=== PATIENT | male | born 2000 | race Caucasian/White ===

== ENCOUNTER 2023-07-19 06:38 | Emergency (ER) | payer OTHER, SELFPAY ==
[2023-07-19 06:48] VITALS: BP 141/93; PULSE 68; RESP 18; TEMP 36.8; O2SAT 97; BMI 27.0
--- NOTE | 2023-07-19 06:59 | ED_ITS ---
HPI - Wound/Laceration General: Chief Complaint: Wound/Laceration Stated Complaint: lac to fingers on R hand Time Seen by Provider: 07/19/23 06:50 Source: patient Mode of arrival: ambulatory History of Present Illness: 23-year-old male presents emergency room with lacerations to his right fourth and fifth finger on the palmar surface. He said this happened a few hours ago he was holding onto the edge of a pickup truck slipped on the side step and when he tried to catch himself cut his hand on the metal on the truck. No other injuries. His last tetanus shot was 7 or more years ago. Physical Exam Narrative: EXAM NARRATIVE: Full-thickness laceration on the palmar surface of the distal aspects of the fourth and fifth fingers no active bleeding. Patient is able to flex and extend without difficulty. Procedures Laceration Laceration 1: Site: hand Side (If applicable): right Size (cm): 2 Description: irregular Depth: simple, single layer Pre-repair: irrigated extensively Skin layer closed with: nylon Size (cm): 5-0 Technique: running Laceration 2: Site: hand Side (If applicable): right (Right fifth finger) Size (cm): 3 Description: irregular Depth: simple, single layer Pre-repair: wound explored and irrigated extensively Skin layer closed with: nylon Size (cm): 5-0 Technique: simple, interrupted and running (1 close the combination of interrupted sutures to approximate wound and position edges properly. 2 interrupted sutures remaining running) Nerve Block Nerve Block 1: Local Anesthetic: lidocaine 1% Amount of anesthesia used (mL): 4 Nerve Blocks: digital Procedure Successful: Yes Patient Tolerated Procedure: well Complications: none Additional Comments: Right fourth finger Nerve Block 2: Local Anesthetic: lidocaine 1% Amount of anesthesia used (mL): 4 Nerve Blocks: digital Procedure Successful: Yes Patient Tolerated Procedure: well Additional Comments: Right fifth finger Course Vital Signs: Vital signs: Vital Signs Temperature 98.2 F 07/19/23 06:48 Pulse Rate 68 07/19/23 06:48 Respiratory Rate 18 07/19/23 06:48 Blood Pressure 141/93 07/19/23 06:48 Pulse Oximetry 97 07/19/23 06:48 Oxygen Delivery Me thod Room Air 07/19/23 06:48 MDM - Wound/Laceration Medical Decision Making Patient is a vasovagal episode while suturing was being done he was placed in Trendelenburg and recovered well. Running sutures applied to minimize knots and discomfort for patient to allow for swelling. Elevate as needed Keflex 503 times a day for 5 days since it was several hours after the original injury that he came to the emergency room. Tetanus updated sutures out in 7 to 10 days. Apply topical antibiotic ointment to wounds as well. Patient able to flex and extend fingers prior to digital nerve block and after digital nerve block was applied still has full function. No involvement of tendons. Differential Diagnosis Likely laceration No radiology studies performed this visit Discharge Plan Discharge Patient Disposition: Home Clinical Impression: Finger laceration Condition: Stable Prescriptions: New cephalexin 500 mg capsule 500 mg PO TID 5 Days Qty: 15 0RF mupirocin 2 % ointment 1 applic topical BID Qty: 22 0RF Discharge Orders: Discharge ED (Routine); Ordered 07/19/23 Ordered By: Shawn Isaac Referrals: Magallon,KATIA MiN [Primary Care Provider] - Discharge Diet: Usual diet Discharge Activity: Resume usual activity Patient Instructions: Laceration (ED), Opioid Safety, Pain Management Activity Restrictions/Additional Instructions: Thank you for choosing [facility] for your healthcare needs today. It is very important that you follow up as instructed or that you return to the Emergency Department should you have concerns or if your condition changes or worsens in any way. You were seen today for laceration on your fourth and fifth fingers in her right hand these are closed with sutures. To prevent swelling and discomfort the sutures are not excessively tight and there may be a little bit of oozing from the sutures. Keep bandages on during the day apply topical antibiotic ointment twice a day. Oral antibiotics 1 pill 3 times a day for 5 days. Sutures removed in 7 to 10 days. Coding Level of Care Code ED Manager Flight for Rahat Ortega
[2023-07-19] MEDS: tetanus-dipt-pertussis 0.5 mL SDV IM (07:15)
[2023-07-19 08:30] VITALS: BP 122/71; PULSE 59; O2SAT 99
[2023-07-19] MEDS: bacitracin ointment Pkt 1 EACH TOPICAL (08:48)
== END 2023-07-19 08:30 | disposition home or self-care (01) ==
PROVIDERS: Emergency Provider Family Medicine; PCP Nurse Practitioner Family
DX: S61.214A Laceration without foreign body of right ring finger without damage to nail, initial encounter (principal); S61.216A Laceration without foreign body of right little finger without damage to nail, initial encounter; W26.8XXA Contact with other sharp object(s), not elsewhere classified, initial encounter; Z23 Encounter for immunization
CPT/HCPCS: 12002; 90471; 90715; 99283